=== PATIENT | female | born 1995 | race Caucasian/White ===

== ENCOUNTER 2021-10-18 07:44 | Emergency (ER) | payer OTHER ==
[2021-10-18 07:56] VITALS: BP 115/77; TEMP 97.7; BMI 22.8
[2021-10-18] MEDS ORDERED: FAMOTIDINE 20 MG TABLET PO ONE (08:44)
[2021-10-18] MEDS ORDERED: MAG HYDROX/AL HYDROX/SIMETH -MYLANTA- ORAL SUSPENSION PO ONE (08:44)
[2021-10-18] MEDS ORDERED: ACETAMINOPHEN 500 MG TABLET (FP) PO ONE (08:45)
[2021-10-18] MEDS ORDERED: MAG HYDROX/AL HYDROX/SIMETH 30 ML UNIT-DOSE CUP ONE (08:52)
[2021-10-18] MEDS ORDERED: FAMOTIDINE 20 MG TABLET ONE (08:52)
[2021-10-18] MEDS ORDERED: ACETAMINOPHEN 325 MG TABLET (FP) ONE (08:52)
[2021-10-18 09:09] VITALS: PULSE 86
== END 2021-10-18 09:28 | disposition home or self-care (01) ==
LOC: JERFT 07:44 → JER 07:44 → JERFT 09:28
DX: R10.13 Epigastric pain (principal); R11.0 Nausea
CPT/HCPCS: 99283-25

== ENCOUNTER 2023-11-17 07:21 | Emergency (ER) | payer OTHER ==
[2023-11-17 07:31] VITALS: BP 120/81; PULSE 84; RESP 20; TEMP 98.7; BMI 26.2
[2023-11-17] MEDS ORDERED: IBUPROFEN 600 MG TABLET (FP) PO ONE ×2 (08:17→08:26)
[2023-11-17] MEDS ORDERED: SODIUM CHLORIDE NASAL SPRAY 44 ML BOTTLE NS ONE (08:18)
== END 2023-11-17 10:38 | disposition home or self-care (01) ==
LOC: JER 07:21
DX: M25.561 Pain in right knee (principal); S80.01XA Contusion of right knee, initial encounter; J06.9 Acute upper respiratory infection, unspecified; R09.81 Nasal congestion; M79.10 Myalgia, unspecified site; R05.9 Cough, unspecified; X58.XXXA Exposure to other specified factors, initial encounter; Z20.822 Contact with and (suspected) exposure to COVID-19
CPT/HCPCS: 0241U-QW; 73562-TC-RT-FY; 99284-25

== ENCOUNTER 2024-11-20 00:34 | Emergency (ER) | payer BC, OTHER ==
[2024-11-20 01:08] VITALS: BP 109/75; PULSE 80; RESP 18; TEMP 97.9; BMI 25.1
[2024-11-20] MEDS: PSEUDOEPHEDRINE HCL 30 MG TABLET PO ONE (01:53)
== END 2024-11-20 02:34 | disposition home or self-care (01) ==
LOC: JER 00:34
DX: J10.1 Influenza due to other identified influenza virus with other respiratory manifestations (principal); R09.81 Nasal congestion; Z20.822 Contact with and (suspected) exposure to COVID-19
CPT/HCPCS: 0241U-QW; 87651; 99283-25